=== PATIENT | male | born 1940 | race Caucasian/White ===

== ENCOUNTER → 2020-08-31 11:28 | Outpatient (CLI) | payer MEDICARE, SELFPAY ==
[2020-08-31 13:21] LABS: Prostate Specific Antigen < 0.064 ng/mL (0.10-4.00)
== END ==
PROVIDERS: PCP Family Medicine; Referring Provider Specialist; Visit Provider Specialist
DX: C61 Malignant neoplasm of prostate (principal); N40.0 Benign prostatic hyperplasia without lower urinary tract symptoms; N39.3 Stress incontinence (female) (male)
CPT/HCPCS: 36415; 51798; 81002; 84153; 99214